=== PATIENT | female | born 1960 | race African-American/Black ===

== ENCOUNTER 2017-04-29 13:16 | Emergency (ER) | payer MEDICAID ==
[~2017-04-29] VITALS: Ht 157.5 cm; Wt 133.5 kg
[~2017-04-29 13:16] MED LIST: AMLO5TAB2 PO; CYCL-259 PO; FLUO20CA8 PO; IBUP-1222 PO; LISI1TAB7 PO; LISI40TA PO; NAPR500T3 PO; OXYC-302 PO
[2017-04-29 13:18] VITALS: BP 169/89
[2017-04-29] MEDS ORDERED: KETOROLAC 30 MG/1 ML ONE (15:20)
[2017-04-29] MEDS ORDERED: KETOROLAC 60 MG/2 ML IM ONE (15:30)
== END 2017-04-29 16:02 | disposition home or self-care (01) ==
LOC: ED 15:56
DX: S29.011A Strain of muscle and tendon of front wall of thorax, initial encounter (principal); I10 Essential (primary) hypertension; Z90.710 Acquired absence of both cervix and uterus; Z88.5 Allergy status to narcotic agent; Z88.6 Allergy status to analgesic agent; X58.XXXA Exposure to other specified factors, initial encounter; Y93.89 Activity, other specified; Y92.89 Other specified places as the place of occurrence of the external cause; Y99.8 Other external cause status
CPT/HCPCS: 71010; 96372; 99283; J1885

== ENCOUNTER 2017-07-10 10:13 | Emergency (ER) | payer MEDICAID ==
[~2017-07-10] VITALS: Ht 160 cm; Wt 132.6 kg
[~2017-07-10 10:13] MED LIST changes: -NAPR500T3 PO; +NAPR500T4 PO
[2017-07-10] MEDS ORDERED: ONDANSETRON 2MG/ML, 2ML ONE (11:17)
[2017-07-10] MEDS ORDERED: ASPIRIN 81 MG TABLET CHEW ONE (11:17)
[2017-07-10] MEDS ORDERED: HYDROmorphone 2 MG/ML, 1ML ONE (11:17)
[2017-07-10] MEDS ORDERED: NITROGLYCERIN SINGLE TAB 0.4 MG SL ONE ×2 (11:17→11:55)
[2017-07-10] MEDS: NITROGLYCERIN SINGLE TAB 0.4 MG SL PRN ×2 (11:22→11:56)
[2017-07-10 11:30] LABS: HEMATOCRIT 43.2 % (34.6-47.8); HEMOGLOBIN 14.6 g/dL (11.7-16.4); WHITE BLOOD COUNT 12.4 x10^3/uL (3.4-10)
[2017-07-10] MEDS ORDERED: HYDROmorphone 1 MG/ML, 1ML IVPush PRN (11:30)
[2017-07-10] MEDS ORDERED: SODIUM CHLORIDE FLUSH 10ML SYR IVF ONE (11:30)
[2017-07-10] MEDS ORDERED: ASPIRIN 81 MG TABLET CHEW PO ONE (11:30)
[2017-07-10] MEDS ORDERED: ONDANSETRON 2MG/ML, 2ML IVPush ONE (11:30)
[2017-07-10 11:43] LABS: ASPARTATE AMINO TRANSFERASE 15 U/L (15-37); BLOOD UREA NITROGEN 13 mg/dL (7-18)
[2017-07-10 11:47] LABS: IS PT STATUS REG ER OR PRE ER? YES
[2017-07-10 13:33] VITALS: BP 173/89
== END 2017-07-10 15:35 | disposition home or self-care (01) ==
LOC: ED 11:33
DX: R07.89 Other chest pain (principal); I10 Essential (primary) hypertension
CPT/HCPCS: 36415; 71010; 80053; 83605; 84484; 85025; 93005; 96374; 96375; 99285; J1170; J2405

== ENCOUNTER 2018-01-15 09:19 | Inpatient (IN) | payer MEDICAID ==
[~2018-01-15] VITALS: Ht 160 cm; Wt 132.5 kg
[~2018-01-15 09:19] MED LIST changes: +NAPR-685 PO; -NAPR500T4 PO
[2018-01-15] MEDS ORDERED: ASPIRIN 81 MG TABLET CHEW ONE (09:49)
[2018-01-15] MEDS ORDERED: NITROGLYCERIN SINGLE TAB 0.4 MG SL ONE (09:49)
[2018-01-15] MEDS ORDERED: METOPROLOL TARTRATE 50 MG TABLET ONE (09:58)
[2018-01-15] MEDS ORDERED: NITROGLYCERIN SINGLE TAB 0.4 MG SL PRN (10:00)
[2018-01-15] MEDS ORDERED: METOPROLOL TARTRATE 50 MG TABLET PO ONE (10:00)
[2018-01-15] MEDS ORDERED: ASPIRIN 81 MG TABLET CHEW PO ONE (10:00)
[2018-01-15] MEDS ORDERED: SODIUM CHLORIDE FLUSH 10ML SYR IVF ONE (10:00)
[2018-01-15 10:05] LABS: BASOPHILS # (AUTO) 0.06 x10^3/uL (0-0.1); BASOPHILS % (AUTO) 1 % (0-1); EOSINOPHILS # (AUTO) 0.19 x10^3/uL (0-0.4); EOSINOPHILS % (AUTO) 2 % (1-7); LYMPHOCYTES # (AUTO) 2.18 x10^3/uL (1-3.4); LYMPHOCYTES % (AUTO) 17 % (22-44); MD NO; MEAN CORPUSCULAR HEMOGLOBIN 28.1 pg (27.0-34.8); MEAN CORPUSCULAR HGB CONC 32.7 g/dL (32.4-35.8); MEAN CORPUSCULAR VOLUME 85.9 fL (80-100); MEAN PLATELET VOLUME 9.9 fL (7.4-10.4); MONOCYTES # (AUTO) 0.86 x10^3/uL (0.2-0.8); MONOCYTES % (AUTO) 7 % (2-9); NEUTROPHILS # (AUTO) 9.43 x10^3/uL (1.8-6.8); NEUTROPHILS % (AUTO) 74 % (42-75); PLATELET COUNT 280 x10^3/uL (130-400); RED BLOOD COUNT 5.22 x10^6/uL (3.82-5.3)
[2018-01-15 10:13] LABS: ALANINE AMINOTRANSFERASE 23 U/L (12-78); ALBUMIN 3.5 g/dL (3.4-5.0); ANION GAP 4 mmol/L (5-15); CALCIUM 8.6 mg/dL (8.5-10.1); CHLORIDE 101 mmol/L (98-107); CREATININE 1.03 mg/dL (0.55-1.02)
[2018-01-15 10:18] LABS: ALKALINE PHOSPHATASE 94 U/L (45-117); BILIRUBIN,TOTAL 0.8 mg/dL (0.2-1.0); TOTAL PROTEIN 7.6 g/dL (6.4-8.2); TROPONIN I < 0.015 ng/mL (0.000-0.045)
[2018-01-15] MEDS ORDERED: POTASSIUM CHLORIDE 20 MEQ TAB.ER.PRT ONE (10:47)
[2018-01-15] MEDS ORDERED: POTASSIUM CHLORIDE 20 MEQ TAB.ER.PRT PO ONE ×2 (11:00→12:30)
[2018-01-15 12:36] VITALS: BP 158/113
[2018-01-15] MEDS ORDERED: TEMAZEPAM 15 MG CAPSULE PO PRN (13:00)
[2018-01-15] MEDS ORDERED: POLYETHYLENE GLYCOL 17 GM PACKET PO PRN (13:00)
[2018-01-15] MEDS ORDERED: HYDROmorphone 2 MG/ML, 1ML IVPush PRN (13:00)
[2018-01-15] MEDS ORDERED: POTASSIUM CHLORIDE 20 MEQ TAB.ER.PRT PO SCH (13:00)
[2018-01-15] MEDS ORDERED: OXYcodone IR 5MG TABLET PO PRN (13:00)
[2018-01-15] MEDS: SODIUM CHLORIDE 0.9% 1,000 ML IV SCH ×2 (13:11→23:24)
[2018-01-15 13:23] LABS: FREE T4 (FREE THYROXINE) 1.07 ng/dL (0.76-1.46); THYROID STIMULATING HORMONE 1.57 mIU/L (0.358-3.740)
[2018-01-15] MEDS ORDERED: ENOXAPARIN 40 MG/0.4 ML SQ SCH (13:30)
[2018-01-15 14:00] VITALS: BP 164/87
[2018-01-15] MEDS: METOPROLOL TARTRATE 25 MG TABLET PO SCH (16:01)
[2018-01-15] MEDS: FUROSEMIDE 20 MG/2 ML IV SCH (16:07)
[2018-01-15 16:21] LABS: TROPONIN I < 0.015 ng/mL (0.000-0.045)
[2018-01-15 18:26] VITALS: BP 151/93
[2018-01-15] MEDS: PANTOPRAZOLE 20MG TABLET PO SCH (19:09)
[2018-01-15] MEDS: ENOXAPARIN 40 MG/0.4 ML SQ SCH (21:35)
[2018-01-15] MEDS: ONDANSETRON 2MG/ML, 2ML IVPush PRN (21:35)
[2018-01-16 01:58] VITALS: BP 160/96
[2018-01-16 04:57] LABS: BASOPHILS # (AUTO) 0.06 x10^3/uL (0-0.1); BASOPHILS % (AUTO) 0 % (0-1); EOSINOPHILS # (AUTO) 0.09 x10^3/uL (0-0.4); EOSINOPHILS % (AUTO) 1 % (1-7); LYMPHOCYTES # (AUTO) 2.27 x10^3/uL (1-3.4); LYMPHOCYTES % (AUTO) 15 % (22-44); MD NO; MEAN CORPUSCULAR HEMOGLOBIN 28.6 pg (27.0-34.8); MEAN CORPUSCULAR HGB CONC 33.2 g/dL (32.4-35.8); MEAN CORPUSCULAR VOLUME 86.3 fL (80-100); MEAN PLATELET VOLUME 10.7 fL (7.4-10.4); MONOCYTES # (AUTO) 0.95 x10^3/uL (0.2-0.8); MONOCYTES % (AUTO) 6 % (2-9); NEUTROPHILS # (AUTO) 11.78 x10^3/uL (1.8-6.8); NEUTROPHILS % (AUTO) 78 % (42-75); PLATELET COUNT 257 x10^3/uL (130-400); RED BLOOD COUNT 4.98 x10^6/uL (3.82-5.3); RED CELL DISTRIBUTION WIDTH 15.3 % (9.6-15.2)
[2018-01-16 04:59] LABS: ALBUMIN 3.5 g/dL (3.4-5.0); ANION GAP 6 mmol/L (5-15); CALCIUM 8.5 mg/dL (8.5-10.1); CHLORIDE 100 mmol/L (98-107)
[2018-01-16 05:03] LABS: ALANINE AMINOTRANSFERASE 26 U/L (12-78); ALKALINE PHOSPHATASE 93 U/L (45-117); BILIRUBIN,TOTAL 0.8 mg/dL (0.2-1.0); CHOLESTEROL, TOTAL 158 mg/dL (140-239); CREATININE 1.04 mg/dL (0.55-1.02); TOTAL PROTEIN 7.7 g/dL (6.4-8.2); TRIGLYCERIDES 75 mg/dL (50-200); TROPONIN I < 0.015 ng/mL (0.000-0.045); VLDL CHOLESTEROL 15 mg/dL (0-25)
[2018-01-16 05:05] LABS: CHOL/HDL RATIO 3.9; HDL CHOL % 26 % (28-40); HDL CHOLESTEROL (DIRECT) 41 mg/dL (40-60); LDL CHOLESTEROL,CALCULATED 102 mg/dL (54-169); LDL/HDL RATIO 2.5 (0.5-3.0)
[2018-01-16] MEDS: SODIUM CHLORIDE 0.9% 1,000 ML IV SCH (07:00)
[2018-01-16] MEDS: ASPIRIN 81 MG TABLET EC PO SCH (07:43)
[2018-01-16] MEDS: METOPROLOL TARTRATE 25 MG TABLET PO SCH ×2 (07:43→17:54)
[2018-01-16] MEDS: PANTOPRAZOLE 20MG TABLET PO SCH ×2 (07:51→22:14)
[2018-01-16] MEDS: FUROSEMIDE 20 MG/2 ML IV SCH ×2 (07:51→17:54)
[2018-01-16 07:53] VITALS: BP 163/105
[2018-01-16] MEDS ORDERED: REGADENOSON 0.4 MG/5 ML SYRINGE ONE (08:08)
[2018-01-16] MEDS: ACETAMINOPHEN 325 MG TABLET PO PRN ×2 (12:22→18:03)
[2018-01-16 13:50] LABS: MICROSCOPIC NOT IND
[2018-01-16 13:59] LABS: CULTURE INDICATED? NO
[2018-01-16 15:30] VITALS: BP 147/95
[2018-01-16] MEDS: ONDANSETRON 2MG/ML, 2ML IVPush PRN (18:04)
[2018-01-16 20:05] VITALS: BP 160/87
[2018-01-16] MEDS: ENOXAPARIN 40 MG/0.4 ML SQ SCH (22:14)
[2018-01-16 22:16] VITALS: BP 136/90
[2018-01-17 00:44] VITALS: BP 145/81
[2018-01-17] MEDS: METOPROLOL TARTRATE 25 MG TABLET PO SCH ×2 (05:43→17:02)
[2018-01-17] MEDS: ASPIRIN 81 MG TABLET EC PO SCH (05:43)
[2018-01-17 05:59] LABS: CALCIUM 8.8 mg/dL (8.5-10.1); CHLORIDE 104 mmol/L (98-107)
[2018-01-17 06:03] LABS: ANION GAP 5 mmol/L (5-15); CREATININE 1.16 mg/dL (0.55-1.02)
[2018-01-17 07:09] VITALS: BP 155/91
[2018-01-17] MEDS: PANTOPRAZOLE 20MG TABLET PO SCH ×2 (09:08→20:58)
[2018-01-17] MEDS: FUROSEMIDE 20 MG/2 ML IV SCH ×2 (09:09→17:02)
[2018-01-17] MEDS: ACETAMINOPHEN 325 MG TABLET PO PRN ×2 (09:09→20:58)
[2018-01-17 12:02] VITALS: BP 169/88
[2018-01-17 16:59] VITALS: BP_SYST 159; BP_SYST 164; BP_DIAS 101; BP_DIAS 104
[2018-01-17 20:51] VITALS: BP 167/98
[2018-01-17] MEDS: ENOXAPARIN 40 MG/0.4 ML SQ SCH (20:58)
[2018-01-18 03:30] VITALS: BP 157/97
[2018-01-18 05:11] LABS: BASOPHILS # (AUTO) 0.05 x10^3/uL (0-0.1); BASOPHILS % (AUTO) 0 % (0-1); EOSINOPHILS % (AUTO) 3 % (1-7); LYMPHOCYTES # (AUTO) 2.16 x10^3/uL (1-3.4); LYMPHOCYTES % (AUTO) 19 % (22-44); MD NO; MEAN CORPUSCULAR HEMOGLOBIN 28.3 pg (27.0-34.8); MEAN CORPUSCULAR HGB CONC 32.9 g/dL (32.4-35.8); MEAN PLATELET VOLUME 10.2 fL (7.4-10.4); MONOCYTES # (AUTO) 1.08 x10^3/uL (0.2-0.8); MONOCYTES % (AUTO) 9 % (2-9); NEUTROPHILS # (AUTO) 7.81 x10^3/uL (1.8-6.8); NEUTROPHILS % (AUTO) 69 % (42-75); PLATELET COUNT 250 x10^3/uL (130-400); RED BLOOD COUNT 4.75 x10^6/uL (3.82-5.3); RED CELL DISTRIBUTION WIDTH 14.8 % (9.6-15.2)
[2018-01-18 05:15] LABS: ANION GAP 4 mmol/L (5-15); CALCIUM 8.4 mg/dL (8.5-10.1); CHLORIDE 104 mmol/L (98-107); CREATININE 0.98 mg/dL (0.55-1.02)
[2018-01-18] MEDS: METOPROLOL TARTRATE 25 MG TABLET PO SCH (06:36)
[2018-01-18] MEDS: ASPIRIN 81 MG TABLET EC PO SCH (06:36)
[2018-01-18 07:25] VITALS: BP 168/87
[2018-01-18] MEDS: FUROSEMIDE 20 MG/2 ML IV SCH (07:30)
[2018-01-18] MEDS ORDERED: POTASSIUM CHLORIDE 20 MEQ TAB.ER.PRT PO ONE (08:00)
[2018-01-18] MEDS ORDERED: KETOROLAC 30 MG/1 ML IVPush ONE (08:00)
[2018-01-18] MEDS ORDERED: METHOCARBAMOL 500 MG TABLET PO ONE (08:00)
[2018-01-18] MEDS: PANTOPRAZOLE 20MG TABLET PO SCH ×2 (08:36→21:42)
[2018-01-18] MEDS ORDERED: FUROSEMIDE 40 MG TABLET PO SCH (09:00)
[2018-01-18] MEDS ORDERED: IBUP-1221 PO (14:47)
[2018-01-18] MEDS ORDERED: HYDR-3343 PO (14:47)
[2018-01-18] MEDS ORDERED: METH750T87 PO (14:47)
[2018-01-18] MEDS ORDERED: FURO40TA6 PO (14:47)
[2018-01-18] MEDS ORDERED: METO50TA82 PO (14:47)
[2018-01-18] MEDS ORDERED: SIMV40TA PO (14:49)
[2018-01-18 15:30] VITALS: BP 181/114
[2018-01-18] MEDS: hydrALAzine 20 MG/ML, 1ML IV PRN (15:58)
[2018-01-18 17:00] VITALS: BP 167/62
[2018-01-18] MEDS: METOPROLOL TARTRATE 50 MG TABLET PO SCH (18:44)
[2018-01-18 20:48] VITALS: BP 169/95
[2018-01-18] MEDS: ENOXAPARIN 40 MG/0.4 ML SQ SCH (21:43)
[2018-01-19 03:02] VITALS: BP 192/109
[2018-01-19] MEDS: hydrALAzine 20 MG/ML, 1ML IV PRN (03:10)
[2018-01-19 03:35] VITALS: BP 180/84
[2018-01-19] MEDS: METOPROLOL TARTRATE 50 MG TABLET PO SCH (06:24)
[2018-01-19] MEDS: ASPIRIN 81 MG TABLET EC PO SCH (06:24)
[2018-01-19 07:56] VITALS: BP 135/85
[2018-01-19] MEDS ORDERED: LISINOPRIL 20 MG TABLET PO SCH (09:00)
[2018-01-19] MEDS ORDERED: METOPROLOL TARTRATE 100 MG TABLET PO SCH (18:00)
== END 2018-01-19 07:57 | disposition left against medical advice (07) | DRG 205 ==
LOC: ED 10:11 → EDIP 11:25 → OBSVTOIN 11:25 → 5SO 12:07
PROVIDERS: ADMIT Internal Medicine; ATTEND Internal Medicine
DX: M94.0 Chondrocostal junction syndrome [Tietze] (principal); N17.0 Acute kidney failure with tubular necrosis; I50.31 Acute diastolic (congestive) heart failure; Z68.43 Body mass index [BMI] 50.0-59.9, adult; E78.5 Hyperlipidemia, unspecified; E66.01 Morbid (severe) obesity due to excess calories; I11.0 Hypertensive heart disease with heart failure; I34.0 Nonrheumatic mitral (valve) insufficiency; I27.20 Pulmonary hypertension, unspecified; G47.33 Obstructive sleep apnea (adult) (pediatric); F12.90 Cannabis use, unspecified, uncomplicated; E87.6 Hypokalemia; Z79.82 Long term (current) use of aspirin; Z79.899 Other long term (current) drug therapy; Z82.49 Family history of ischemic heart disease and other diseases of the circulatory system; Z90.710 Acquired absence of both cervix and uterus; Z79.1 Long term (current) use of non-steroidal anti-inflammatories (NSAID); Z88.5 Allergy status to narcotic agent
CPT/HCPCS: 36415; 71045; 78452; 80048; 80053; 80061; 81003; 83605; 83735; 84100; 84439; 84443; 84484; 85025; 93005; 93017; 93306; 99285; J1650; J1885; J2405; J2785; A9502; C9898; J0360; J1940; J7030

== ENCOUNTER 2018-10-09 10:22 | Emergency (ER) | payer MEDICAID ==
[~2018-10-09] VITALS: Ht 157.5 cm; Wt 132.6 kg
[~2018-10-09 10:22] MED LIST changes: +AMLO-150 PO; -AMLO5TAB2 PO; +FURO40TA6 PO; +HYDR-3343 PO; +IBUP-1221 PO; +METH750T87 PO; +METO50TA82 PO; +SIMV40TA PO
--- NOTE | 2018-10-09 10:54 | NUR ---
PT PRESENTS TO ED WITH CP 05/10 STARTING "THIS AM", HAS BEEN HAVING THIS PAIN SINCE THURS. RECENTLY DIAGNOSED WITH COSTAL CONDRITIS. HX CHF, HTN. FRIEND AT BEDSIDE. EKG, CXR DONE, LABS DRAWN.
[2018-10-09 10:56] LABS: BASOPHILS # (AUTO) 0.03 x10^3/uL (0-0.1); BASOPHILS % (AUTO) 0 % (0-1); EOSINOPHILS # (AUTO) 0.31 x10^3/uL (0-0.4); EOSINOPHILS % (AUTO) 2 % (1-7); LYMPHOCYTES # (AUTO) 2.28 x10^3/uL (1-3.4); LYMPHOCYTES % (AUTO) 18 % (22-44); MD NO; MEAN CORPUSCULAR HEMOGLOBIN 27.8 pg (27.0-34.8); MEAN CORPUSCULAR HGB CONC 32.6 g/dL (32.4-35.8); MEAN CORPUSCULAR VOLUME 85.5 fL (80-100); MEAN PLATELET VOLUME 10.6 fL (7.4-10.4); MONOCYTES # (AUTO) 0.95 x10^3/uL (0.2-0.8); MONOCYTES % (AUTO) 7 % (2-9); NEUTROPHILS # (AUTO) 9.44 x10^3/uL (1.8-6.8); NEUTROPHILS % (AUTO) 73 % (42-75); PLATELET COUNT 269 x10^3/uL (130-400); RED BLOOD COUNT 5.38 x10^6/uL (3.82-5.3); RED CELL DISTRIBUTION WIDTH 15.7 % (9.6-15.2)
[2018-10-09] MEDS ORDERED: ASPIRIN 81 MG TABLET CHEW ONE (10:57)
[2018-10-09] MEDS ORDERED: ASPIRIN 81 MG TABLET CHEW PO ONE (11:00)
[2018-10-09 11:09] LABS: ALBUMIN 3.4 g/dL (3.4-5.0); CALCIUM 8.3 mg/dL (8.5-10.1); CHLORIDE 105 mmol/L (98-107); CREATININE 1.02 mg/dL (0.55-1.02)
[2018-10-09] MEDS ORDERED: OXYcodone/APAP 10/325MG TABLET ONE (11:10)
[2018-10-09 11:12] VITALS: BP 164/92
[2018-10-09 11:14] LABS: TROPONIN I < 0.015 ng/mL (0.000-0.045)
[2018-10-09 11:19] LABS: ANION GAP 3 mmol/L (5-15)
[2018-10-09] MEDS ORDERED: OXYcodone/APAP 10/325MG TABLET PO ONE (11:30)
[2018-10-09] MEDS ORDERED: KETOROLAC 30 MG/1 ML ONE (11:41)
--- NOTE | 2018-10-09 11:47 | NUR ---
PT RESTING IN GURNEY ON MONITOR, VSS. PT MEDICATED FOR PAIN. PROVIDER AT BEDSIDE. PT STATES PAIN 2/10 AT THIS TIME
[2018-10-09] MEDS ORDERED: KETOROLAC 30 MG/1 ML IM ONE (12:00)
== END 2018-10-09 12:18 | disposition home or self-care (01) ==
LOC: ED 12:03
DX: M94.0 Chondrocostal junction syndrome [Tietze] (principal); I10 Essential (primary) hypertension
CPT/HCPCS: 36415; 71045; 80048; 82040; 84484; 85025; 93005; 96372; 99284; J1885

== ENCOUNTER 2019-10-09 08:40 | Emergency (ER) | payer MEDICAID ==
[~2019-10-09] VITALS: Ht 160 cm; Wt 129.0 kg
[~2019-10-09 08:40] MED LIST changes: +FLUO20CA23 PO; -FLUO20CA8 PO; +LISI1TAB20 PO; -LISI1TAB7 PO
--- NOTE | 2019-10-09 10:01 | NUR ---
CONSUMER SAFETY INSPECTOR: PT TO ROOM FROM LOBBY VIA WHEELCHAIR
--- NOTE | 2019-10-09 10:05 | NUR ---
Lab at bedside at 1003a Patient instructed on need for UA curtis. Reviewed instructions
[2019-10-09 10:26] LABS: CALCIUM 9.1 mg/dL (8.5-10.1); CHLORIDE 98 mmol/L (98-107)
[2019-10-09 10:30] LABS: BASOPHILS # (AUTO) 0.07 x10^3/uL (0-0.1); BASOPHILS % (AUTO) 1 % (0-1); EOSINOPHILS # (AUTO) 0.15 x10^3/uL (0-0.4); EOSINOPHILS % (AUTO) 1 % (1-7); LYMPHOCYTES # (AUTO) 2.39 x10^3/uL (1-3.4); LYMPHOCYTES % (AUTO) 17 % (22-44); MD NO; MEAN CORPUSCULAR HEMOGLOBIN 29.2 pg (27.0-34.8); MEAN CORPUSCULAR HGB CONC 33.2 g/dL (32.4-35.8); MEAN CORPUSCULAR VOLUME 87.7 fL (80-100); MEAN PLATELET VOLUME 9.4 fL (7.4-10.4); MONOCYTES # (AUTO) 1.01 x10^3/uL (0.2-0.8); MONOCYTES % (AUTO) 7 % (2-9); NEUTROPHILS # (AUTO) 10.72 x10^3/uL (1.8-6.8); NEUTROPHILS % (AUTO) 75 % (42-75); PLATELET COUNT 310 x10^3/uL (130-400); RED BLOOD COUNT 4.88 x10^6/uL (3.82-5.3); RED CELL DISTRIBUTION WIDTH 14.6 % (9.6-15.2)
[2019-10-09 10:32] LABS: ALANINE AMINOTRANSFERASE 25 U/L (12-78); ALBUMIN 3.6 g/dL (3.4-5.0); ALKALINE PHOSPHATASE 100 U/L (45-117); ANION GAP 7 mmol/L (5-15); BILIRUBIN,TOTAL 0.8 mg/dL (0.2-1.0); CREATININE 1.07 mg/dL (0.55-1.02); TOTAL PROTEIN 8.3 g/dL (6.4-8.2)
--- NOTE | 2019-10-09 10:40 | NUR ---
clean catch Ua sent
[2019-10-09 11:10] LABS: CULTURE INDICATED? YES; MICROSCOPIC INDICATED
[2019-10-09] MEDS ORDERED: SODIUM CHLORIDE 0.9% 1,000 ML IV ONE (11:19)
[2019-10-09] MEDS ORDERED: PLEASE ENTER ALLERGIES MC SCH (11:30)
[2019-10-09] MEDS ORDERED: NS + 40MEQ KCL 1,000 ML IV SCH (11:30)
[2019-10-09] MEDS ORDERED: HYDROmorphone 2 MG/ML, 1ML IVPush PRN (11:30)
[2019-10-09] MEDS ORDERED: CEFTRIAXONE PMX 1GM/50ML 50 ML IV ONE (11:30)
[2019-10-09] MEDS ORDERED: SODIUM CHLORIDE FLUSH 10ML SYR IVF ONE (11:30)
--- NOTE | 2019-10-09 11:41 | NUR ---
Piv placed with US Updated on poc (to medicate/ct of abd)
[2019-10-09] MEDS ORDERED: CEFTRIAXONE PMX 1GM/50ML 50 ML ONE (11:44)
[2019-10-09] MEDS ORDERED: HYDROmorphone 1 MG/ML, 1ML INJ ONE (11:45)
[2019-10-09] MEDS ORDERED: NS + 40MEQ KCL 1,000 ML IV ONE (11:45)
--- NOTE | 2019-10-09 11:53 | NUR ---
medicated per emar for left flank pain at 03/[address] scan at 1152a
--- NOTE | 2019-10-09 12:25 | NUR ---
WITH REASSESSMENT PAIN IMPROVED TO 3/10
[2019-10-09 12:50] VITALS: BP 138/70
[2019-10-09] MEDS ORDERED: KETOROLAC 30 MG/1 ML ONE (13:15)
[2019-10-09] MEDS ORDERED: KETOROLAC 30 MG/1 ML IVPush ONE (13:30)
--- NOTE | 2019-10-09 13:35 | NUR ---
WITH RE-ASSESSMENT PAIN IMPROVED (POST TORADOL) TO 0/10. ABLE TO AMBULATE INDEPENDENTLY RECIEWED D/C PLAN/NARCOTIC CONSENT DISCHARGED INTO THE CARE OF FRIEND
--- NOTE | 2019-10-09 13:43 | NUR ---
TASK RN: PT TRANSFERED TO WHEELCHAIR FOR D/C. FRIEND TO PURCHASE PRICE ANALYST PT FROM [facility]
== END 2019-10-09 13:44 | disposition home or self-care (01) ==
LOC: ED 13:38
DX: N30.90 Cystitis, unspecified without hematuria (principal); I50.9 Heart failure, unspecified; Z90.710 Acquired absence of both cervix and uterus
CPT/HCPCS: 36415; 74021; 74177; 80053; 81001; 83690; 85025; 87086; 96365; 96375; 99285; J0696; J1170; J1885; J3480; J7030

== ENCOUNTER 2019-12-06 11:54 | Emergency (ER) | payer MEDICAID ==
[~2019-12-06] VITALS: Ht 162.6 cm; Wt 131.7 kg
--- NOTE | 2019-12-06 12:51 | NUR ---
THIS IS A 59 YO F W/ C/O RT BREAK DRAINAGE THAT IS BLOODY X3 DAYS. PT REPORTS A HX OF THE SAME IN WHICH SHE HAD A BIOPSY DONE IN DECEMBER 2018 THAT WAS NEGATIVE. PT WAS TO HAVE MAMMOGRAM DONE BUT HAS BEEN UNABLE TO SCHEUDLE DUE TO VIRUS OUTBREAK. PT DENIES PAIN IN BREAST. PT REPORTS PAIN IN BLADDER PRIOR TO URINATION, NO PAIN DURING OR AFTER FOR A FEW MONTHS. PT IS RESTING ON OVIDIO W/ CALL KATRINA IN REACH, AT BEDSIDE FOR EVAL. DENIES FURTHER NEEDS AT THIS TIME.
[2019-12-06 13:09] VITALS: BP 148/103
[2019-12-06] MEDS ORDERED: ESCI10TA PO (13:33)
[2019-12-06] MEDS ORDERED: CHLO25TA PO (13:33)
[2019-12-06] MEDS ORDERED: IBUP-1222 PO (13:33)
[2019-12-06] MEDS ORDERED: HYDR100T25 PO (13:33)
[2019-12-06] MEDS ORDERED: METF500T17 PO (13:33)
[2019-12-06] MEDS ORDERED: AMLO10TA8 PO (13:33)
[2019-12-06] MEDS ORDERED: METH750T2 PO (13:33)
[2019-12-06] MEDS ORDERED: OXYB10TA26 PO (13:33)
[2019-12-06] MEDS ORDERED: ERGO500017 PO (13:33)
--- NOTE | 2019-12-06 13:34 | NUR ---
PT RESTING ON [employer] W/ CALL LIGHT IN REACH. PROVIDED WATER AFTER OK FROM . AWAITING ORDERS.
--- NOTE | 2019-12-06 13:40 | NUR ---
MED REC DONE.
--- NOTE | 2019-12-06 14:43 | NUR ---
Patient given discharge instructions and they have confirmed that they understand the instructions. Patient ambulatory with steady gait.
== END 2019-12-06 14:45 | disposition home or self-care (01) ==
LOC: ED 13:05
DX: N64.52 Nipple discharge (principal); R10.9 Unspecified abdominal pain; I11.0 Hypertensive heart disease with heart failure; I50.9 Heart failure, unspecified
CPT/HCPCS: 99281

== ENCOUNTER → 2019-12-07 | Outpatient (CLI) | payer MEDICAID ==
[~2019-12-07] MED LIST changes: +AMLO10TA8 PO; +CHLO25TA PO; +ERGO500017 PO; +ESCI10TA PO; +HYDR100T25 PO; +METF500T17 PO; +METH750T2 PO; +OXYB10TA26 PO
== END | disposition home or self-care (01) ==
LOC: CFH 09:51
PROVIDERS: ATTEND Emergency Medicine
DX: N64.52 Nipple discharge (principal); R92.1 Mammographic calcification found on diagnostic imaging of breast
CPT/HCPCS: 76642; 77066; G0279

== ENCOUNTER 2020-03-27 10:37 | Day surgery (SDC) | payer MEDICAID ==
[2020-03-24 14:21] LABS: ALBUMIN 3.5 g/dL (3.4-5.0); ANION GAP 6 mmol/L (5-15); CALCIUM 8.6 mg/dL (8.5-10.1); CHLORIDE 104 mmol/L (98-107)
[2020-03-24 14:25] LABS: ALANINE AMINOTRANSFERASE 23 U/L (12-78); ALKALINE PHOSPHATASE 84 U/L (45-117); BILIRUBIN,TOTAL 0.9 mg/dL (0.2-1.0); CREATININE 0.99 mg/dL (0.55-1.02); TOTAL PROTEIN 7.8 g/dL (6.4-8.2)
[~2020-03-27] VITALS: Ht 160 cm; Wt 132.3 kg
[~2020-03-27 10:37] MED LIST changes: +METO-93 PO
[2020-03-27] MEDS ORDERED: LACTATED RINGERS 1,000 ML IV SCH (10:52)
[2020-03-27 10:55] VITALS: BP 162/11
[2020-03-27] MEDS ORDERED: CHLORHEXIDINE 15 ML UDC MM ONE (11:00)
[2020-03-27] MEDS ORDERED: LIDOCAINE-MPF 1%, 2ML INFIL ONE (11:00)
[2020-03-27] MEDS ORDERED: LABETALOL 5MG/ML, 20ML ONE (11:35)
[2020-03-27] MEDS: LABETALOL 5MG/ML, 20ML IVPush ONE ×2 (12:00→13:55)
[2020-03-27] MEDS ORDERED: FENTANYL PF 100 MCG/2ML ONE ×2 (12:05→13:50)
[2020-03-27] MEDS ORDERED: MIDAZOLAM 1 MG/ML, 2ML ONE (12:06)
[2020-03-27] MEDS ORDERED: BUPIVACAINE/PF-EPI 0.5% 1:200K ONE (12:19)
[2020-03-27] MEDS ORDERED: BUPIVACAINE/PF 0.5% ONE (12:28)
[2020-03-27] MEDS ORDERED: OXYcodone 5 MG/5 ML ORAL.SOL UDC PO PRN (12:30)
[2020-03-27] MEDS ORDERED: MEPERIDINE/PF 25MG/0.5ML IVPush PRN (12:30)
[2020-03-27] MEDS ORDERED: HYDROmorphone 1 MG/ML, 1ML INJ IVPush PRN (12:30)
[2020-03-27] MEDS ORDERED: LABETALOL 5MG/ML, 20ML IVPush ONE (12:30)
[2020-03-27] MEDS ORDERED: PROMETHAZINE 25 MG/ML, 1ML IVPush PRN (12:30)
[2020-03-27] MEDS ORDERED: CEFAZOLIN 1,000 MG ONE (12:36)
[2020-03-27] MEDS ORDERED: PROPOFOL 10 MG/ML, 20ML ONE (12:36)
[2020-03-27] MEDS ORDERED: ONDANSETRON 2MG/ML, 2ML ONE (12:36)
[2020-03-27] MEDS ORDERED: DEXAMETHASONE 4 MG/ML, 1ML ONE (12:36)
[2020-03-27] MEDS ORDERED: OXYcodone 5 MG/5 ML ORAL.SOL UDC ONE (13:50)
[2020-03-27] MEDS: FENTANYL PF 100 MCG/2ML IV PRN ×2 (13:57→14:05)
[2020-03-27] MEDS ORDERED: hydrALAzine 20 MG/ML, 1ML ONE (14:06)
[2020-03-27] MEDS ORDERED: hydrALAzine 20 MG/ML, 1ML IV ONE (15:00)
== END 2020-03-27 17:10 | disposition home or self-care (01) ==
LOC: OUT 10:37
PROVIDERS: ATTEND Surgery
DX: N64.52 Nipple discharge (principal); Z20.828 Contact with and (suspected) exposure to other viral communicable diseases; N60.41 Mammary duct ectasia of right breast; D24.1 Benign neoplasm of right breast; I10 Essential (primary) hypertension; Z79.84 Long term (current) use of oral hypoglycemic drugs; Z79.899 Other long term (current) drug therapy; Z88.5 Allergy status to narcotic agent; Z82.49 Family history of ischemic heart disease and other diseases of the circulatory system
CPT/HCPCS: 19120; 36415; 80053; 82962; 87635; 88305; 93005; J0360; J0690; J1100; J2250; J2405; J2704; J3010; J7120